=== PATIENT | male | born 1945 | race Caucasian/White ===

== ENCOUNTER 2016-10-25 12:50 | Emergency (ER) | payer OTHER, MEDICARE ==
[~2016-10-25] VITALS: Ht 167.6 cm; Wt 88.2 kg
[~2016-10-25 12:50] MED LIST: ALLO300T2 PO; DRIS50002 PO; GABA600T PO; GLIP10TA6 PO; HYDR25TA35 PO; NIFE90TA2 PO; NORC5TAB PO; OMEP20TA PO; ONGL5TAB PO; PROS5TAB PO; TERA10CA3 PO; ZOCO80TA PO
[2016-10-25 13:08] VITALS: BP 104/58; PULSE 110; RESP 18; TEMP 99.8; O2SAT 94
[2016-10-25] MEDS ORDERED: SODIUM CHLORIDE 0.9% FLUSH 10 ML FLUSH IVF PRN (13:30)
[2016-10-25] MEDS ORDERED: INSULIN HUMAN REGULAR 1,000 UNITS/10 ML VIAL IV PUSH ONE ×2 (13:30→15:00)
[2016-10-25] MEDS ORDERED: SODIUM CHLOR 0.9% 1000 ML INJ 1,000 ML IV ONE ×2 (13:30→14:00)
[2016-10-25 13:35] VITALS: RESP 18; O2SAT 94
--- NOTE | 2016-10-25 13:36 | PD ---
HPI Chief Complaint: Diabetic Time Seen by Provider: 13:26 Travel History International Travel<30 days: No Contact w/Intl Traveler<30days: No Traveled to known affect area: No History of Present Illness HPI This patient complains of elevated blood sugars. His sugar at home was 493. He is not having vomiting or diarrhea or fever per his report. Temp is 99.8. He denies infective symptoms. 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 Duration 2 days. Severity is moderate. No alleviating factors. PFSH Past Medical History Hx Anticoagulant Therapy: Yes (ASA 81MG) Heart Rhythm Problems: No Cancer: Yes (liver) Cardiovascular Problems: Yes (htn on meds) High Cholesterol: Yes Chemotherapy: Yes Congestive Heart Failure: No Diabetes: Yes Diminished Hearing: No Endocrine: Yes Gastrointestinal Disorders: Yes Genitourinary: Yes (PROSTATE PROBLEMS, chronic infection) Hepatitis: Yes (HEP C, CIRRHOSIS) Hypertension: Yes Immune Disorder: No Implanted Vascular Access Dvce: No Neurologic: No Psychiatric: No Respiratory: No Immunizations Current: Yes Renal Failure: Yes (KIDNEY DISEASE ) Past Surgical History Abdominal Surgery: No Cardiac Surgery: No Genitourinary Surgery: No Neurologic Surgery: No Thoracic Surgery: No Other Surgery: Yes Social History Alcohol Use: No Tobacco Use: Yes (4-5 CIGS DAILY) Substance Use: Yes Allergies-Medications (Allergen,Severity, Reaction): Coded Allergies: No Known Allergies (Verified , 10/25/16) Reported Meds & Prescriptions Reported Meds & Active Scripts Active Reported Milk of Magnesia Liq (Magnesium Hydroxide) 400 Mg/5 Ml Susp 30 Ml PO DAILY PRN Hydralazine HCl 25 Mg Tablet 20 Mg PO BID Allopurinol 300 Mg Tab 150 Mg PO DAILY Terazosin (Terazosin HCl) 10 Mg Cap 10 Mg PO HS Zocor (Simvastatin) 80 Mg Tab 80 Mg PO DAILY Onglyza (Saxagliptin) 5 Mg Tab 5 Mg PO HS Omeprazole 20 Mg Tab 20 Mg PO DAILY Nifedipine ER (Nifedipine) 90 Mg Tab 90 Mg PO DAILY Glipizide 10 Mg Tab 10 Mg PO BIDAC Take 30 minutes before a meal Gabapentin 600 Mg Tab 600 Mg PO HS Proscar (Finasteride) 5 Mg Tab 5 Mg PO DAILY Do not crush. Review of Systems General / Constitutional: No: Chills Eyes: No: Visual changes HENT: No: Headaches Cardiovascular: No: Chest Pain or Discomfort Respiratory: No: Shortness of Breath Gastrointestinal: No: Abdominal Pain Genitourinary: No: Dysuria Musculoskeletal: No: Pain Skin: No Rash Neurologic: No: Weakness Psychiatric: No: Depression Endocrine: No: Polydipsia Hematologic/Lymphatic: No: Easy Bruising Physical Exam Narrative GENERAL: Well-nourished, well-developed patient in no apparent distress. SKIN: Focused skin assessment reveals no rash and nodules. Skin is Warm and dry. HEAD: Atraumatic. Normocephalic. EYES: Pupils equal and round. No scleral icterus. No injection or drainage. ENT: No nasal bleeding or discharge. Mucous membranes pink and moist. NECK: Trachea midline. No JVD. CARDIOVASCULAR: Regular rate and rhythm. No murmur appreciated. RESPIRATORY: No accessory muscle use. Clear to auscultation. Breath sounds equal bilaterally. GASTROINTESTINAL: Abdomen soft, non-tender, nondistended. Hepatic and splenic margins not palpable. Steri-Strips abdominal incision looks fairly good. No dehiscence or sign of infection. MUSCULOSKELETAL: No obvious deformities. No clubbing. No cyanosis. No edema. NEUROLOGICAL: Awake and alert. No obvious cranial nerve deficits. Motor grossly within normal limits. Normal speech. PSYCHIATRIC: Appropriate mood and affect; insight and judgment normal. Data Data Last Documented VS Vital Signs Date Time Temp Pulse Resp B/P Pulse Ox O2 Delivery O2 Flow Rate FiO2 10/25/16 14:08 100.0 90 16 104/48 94 Room Air Orders Complete Blood Count With Diff (10/25/16 13:30) Ecg Monitoring (10/25/16 13:30) Iv Access Insert/Monitor (10/25/16 13:30) Oximetry (10/25/16 13:30) Sodium Chlor 0.9% 1000 Ml Inj (Ns 1000 M (10/25/16 13:30) Sodium Chlor 0.9% 1000 Ml Inj (Ns 1000 M (10/25/16 14:00) Sodium Chloride 0.9% Flush (Ns Flush) (10/25/16 13:30) Insulin Human Regular Inj (Novolin R Inj (10/25/16 13:30) Basic Metabolic Panel (Bmp) (10/25/16 13:36) Urinalysis - C+S If Indicated (10/25/16 14:38) Chest, Single Ap (10/25/16 ) Blood Culture (10/25/16 14:38) Insulin Human Regular Inj (Novolin R Inj (10/25/16 15:00) Urine Culture (10/25/16 14:50) Labs Laboratory Tests Test 10/25/16 10/25/16 13:25 14:50 White Blood Count 24.9 TH/MM3 Red Blood Count 2.89 MIL/MM3 Hemoglobin 8.9 GM/DL Hematocrit 27.2 % Mean Corpuscular Volume 94.2 FL Mean Corpuscular Hemoglobin 30.8 PG Mean Corpuscular Hemoglobin 32.7 % Concent Red Cell Distribution Width 13.9 % Platelet Count 655 TH/MM3 Mean Platelet Volume 7.8 FL Neutrophils (%) (Auto) 86.4 % Lymphocytes (%) (Auto) 4.1 % Monocytes (%) (Auto) 6.7 % Eosinophils (%) (Auto) 0.1 % Basophils (%) (Auto) 2.7 % Neutrophils # (Auto) 21.5 TH/MM3 Lymphocytes # (Auto) 1.0 TH/MM3 Monocytes # (Auto) 1.7 TH/MM3 Eosinophils # (Auto) 0.0 TH/MM3 Basophils # (Auto) 0.7 TH/MM3 CBC Comment DIFF FINAL Differential Comment Sodium Level 133 MEQ/L Potassium Level 4.9 MEQ/L Chloride Level 100 MEQ/L Carbon Dioxide Level 23.8 MEQ/L Anion Gap 9 MEQ/L Blood Urea Nitrogen 30 MG/DL Creatinine 2.20 MG/DL Estimat Glomerular Filtration 30 ML/MIN Rate Random Glucose 455 MG/DL Calcium Level 8.0 MG/DL Urine Color YELLOW Urine Turbidity CLEAR Urine pH 5.5 Urine Specific Ryan 1.025 Urine Protein 30 mg/dL Urine Glucose (UA) 1000 OR GREATER mg/dL Urine Ketones NEG mg/dL Urine Occult Blood NEG Urine Nitrite NEG Urine Bilirubin NEG Urine Leukocyte Esterase NEG Urine RBC 0-3 /hpf Urine WBC 9-14 /hpf Urine Squamous Epithelial 0-5 /hpf Cells Urine Amorphous Sediment FEW Urine Hyaline Casts 0-2 /lpf Urine Fine Granular Casts 0-2 /lpf Microscopic Urinalysis Comment CULTURE INDICATED MDM Medical Decision Making Medical Screen Exam Complete: Yes Emergency Medical Condition: Yes Medical Record Reviewed: Yes Differential Diagnosis Hyperglycemia, DKA, dehydration Narrative Course I have reviewed the patient's electronic medical record. IV placed I gave him 2 L normal saline IV bolus I gave him 12 units IV regular insulin CBC shows leukocytosis and anemia Metabolic profile shows some renal insufficiency but electrolytes normal and CO2 normal He is not acidotic He does not have DKA Blood sugar came down to 360. I gave him an additional 6 units IV regular insulin Given his leukocytosis I added additional studies including a blood culture and urinalysis and chest x-ray. Urinalysis has a scant pyuria but not significant Chest x-ray report is noted. There is consideration of some consolidation. However he has no signs or symptoms of pneumonia Given the overall package of leukocytosis and a diabetic I gave him a course of Levaquin but there is no clinical indication of bacterial infection to examine him. He does not look septic or toxic. Blood pressure on the low end but stable and he says this is his usual blood pressure. He feels much better after the above treatment I advised him to check and record his blood sugar frequently, 4 times a day Be compliant with diabetic diet He should call his primary physician for follow-up and return if he worsens Diagnosis Primary Impression: Hyperglycemia Additional Impressions: Dehydration Leukocytosis, unspecified Additional Instructions: The patient was advised to follow up with their physician and return if they worsen. Check and record blood sugar 4 times daily Be compliant with diabetic diet Med/Other Pt SpecificInfo: Prescription(s) given Scripts Levofloxacin (Levaquin)750 Mg [id number] Mg PO DAILY #10 Prov:Yvan Valencia MD 10/25/16 Disposition: 01 DISCHARGE HOME Condition: Stable Yvan Valencia MD Oct 25, 2016 13:36
[2016-10-25 13:55] LABS: AUTOMATED NEUTROPHIL # 21.5 TH/MM3 (1.8-7.7); BASOPHIL # 0.7 TH/MM3 (0-0.2); BASOPHIL % 2.7 % (0.0-2.0); EOSINOPHIL % 0.1 % (0.0-4.0); HEMATOCRIT 27.2 % (39.0-51.0); LYMPH % 4.1 % (9.0-44.0); MEAN CELL VOLUME 94.2 FL (80.0-100.0); MEAN CORPUSCULAR HEMOGLOBIN 30.8 PG (27.0-34.0); MEAN CORPUSCULAR HGB CONC 32.7 % (32.0-36.0); MONO % 6.7 % (0.0-8.0); NEUT % 86.4 % (16.0-70.0); PLATELET COUNT 655 TH/MM3 (150-450); RED BLOOD COUNT 2.89 MIL/MM3 (4.50-5.90); RED CELL DISTRIBUTION WIDTH 13.9 % (11.6-17.2); WHITE BLOOD COUNT 24.9 TH/MM3 (4.0-11.0)
[2016-10-25 14:01] LABS: POTASSIUM 4.9 MEQ/L (3.5-5.1)
[2016-10-25 14:07] LABS: HEMO FLAGS DIFF FINAL
[2016-10-25 14:08] VITALS: BP 104/48; PULSE 90; RESP 16; TEMP 100; O2SAT 94
[2016-10-25] MEDS ORDERED: ALLO300T2 PO (14:14)
[2016-10-25] MEDS ORDERED: MILKSUS PO (14:14)
[2016-10-25] MEDS ORDERED: HYDR-3799 PO (14:14)
[2016-10-25 14:18] LABS: BICARBONATE 23.8 MEQ/L (21.0-32.0)
[2016-10-25 15:09] LABS: BLOOD, URINE NEG (NEG); KETONE, URINE NEG (NEG); NITRITE,URINE NEG (NEG); PH, URINE 5.5 (5.0-8.5)
--- NOTE | 2016-10-25 15:12 | RADRPT ---
EXAM DATE/TIME: 10/25/2016 14:56 [facility] COMPARISON: No previous studies available for comparison. INDICATIONS : Fever MEDICAL HISTORY : Hypercholesterolemia. Hypertension SURGICAL HISTORY : None. ENCOUNTER: Initial ACUITY: 1 day PAIN SCORE: 0/10 LOCATION: Bilateral chest FINDINGS: Minimal changes left base, right lung is clear. The heart is minimally enlarged. The pulmonary vascularity is normal. The portion of the bony skeleton visualized is unremarkable. CONCLUSION: Consolidation left base with compensated cardiomegaly. Reece Judd MD FACR on October 25, 2016 at 15:10 Board Certified Radiologist. This report was verified electronically.
[2016-10-25 15:19] LABS: GLUCOSE,URINE 1000 OR GREATER mg/dL (NEG)
[2016-10-25 15:21] LABS: COMMENT (UR) CULTURE INDICATED; CULTURE IF INDICATED CULTURE INDICATED; HYALINE CAST, URINE 0-2 /lpf (RARE); RBC, URINE 0-3 /hpf (0-3); SQUAMOUS EPITHELIAL CELL URINE 0-5 /hpf (0-5); URINE COLOR YELLOW (YELLW/STRAW)
[2016-10-25 15:33] VITALS: BP 112/57; PULSE 100; RESP 18; O2SAT 92
[2016-10-25] MEDS ORDERED: LEVA750T9 PO (15:33)
== END 2016-10-25 15:58 | disposition home or self-care (01) ==
LOC: PHED 12:50
DX: E11.65 Type 2 diabetes mellitus with hyperglycemia (principal); E86.0 Dehydration; D72.829 Elevated white blood cell count, unspecified; R50.9 Fever, unspecified; I51.7 Cardiomegaly; B19.20 Unspecified viral hepatitis C without hepatic coma; E78.00 Pure hypercholesterolemia, unspecified; K74.60 Unspecified cirrhosis of liver; I12.9 Hypertensive chronic kidney disease with stage 1 through stage 4 chronic kidney disease, or unspecified chronic kidney disease; E11.22 Type 2 diabetes mellitus with diabetic chronic kidney disease; N18.9 Chronic kidney disease, unspecified; Z79.82 Long term (current) use of aspirin; F17.210 Nicotine dependence, cigarettes, uncomplicated
CPT/HCPCS: 71010; 80048; 81001; 85025; 87040; 87086; 96361; 96374; 96376; 99284; J1815; J7030